=== PATIENT | male | born 1970 | race Caucasian/White ===

== ENCOUNTER 2019-03-31 07:44 | Day surgery (SDC) | payer OTHER ==
[2019-03-29 15:56] VITALS: BMI 31.9
[2019-03-31] MEDS ORDERED: CITRIC ACID/SODIUM CITRATE 30 ML UNIT-DOSE CUP PO ONE (08:30)
[2019-03-31] MEDS ORDERED: MIDAZOLAM HCL 2 MG/2 ML SINGLE DOSE VIAL ONE (10:29)
[2019-03-31] MEDS ORDERED: PROPOFOL 20 ML ONE (10:29)
[2019-03-31] MEDS ORDERED: SUCCINYLCHOLINE CHLORIDE 200 MG/10 ML SYRINGE ONE (10:30)
[2019-03-31] MEDS ORDERED: ROCURONIUM BROMIDE 50 MG/5 ML SYRINGE ONE (10:30)
[2019-03-31] MEDS ORDERED: LIDOCAINE HCL 1% PRESERVATIVE FREE - 30ML VIAL ONE (10:37)
[2019-03-31] MEDS ORDERED: DEXAMETHASONE SOD PHOSPHATE 4 MG/1 ML VIAL ONE (10:53)
[2019-03-31] MEDS ORDERED: KETOROLAC TROMETHAMINE 30 MG/1 ML VIAL ONE (10:53)
[2019-03-31] MEDS ORDERED: ceFAZolin SODIUM 1 GM VIAL ONE (10:53)
[2019-03-31] MEDS ORDERED: ONDANSETRON 4 MG/2 ML VIAL ONE ×2 (10:53→12:06)
[2019-03-31] MEDS ORDERED: LIDOCAINE HCL 2% JELLY (5 ML/TUBE) ONE (10:53)
[2019-03-31] MEDS ORDERED: LIDOCAINE HCL/PF 2% SDV 5ML VIAL ONE (10:53)
[2019-03-31] MEDS ORDERED: DESFLURANE GAS 240 ML BOTTLE IH ONE (11:25)
[2019-03-31] MEDS ORDERED: ONDANSETRON 4 MG/2 ML VIAL IVPUSH PRN (12:15)
[2019-03-31] MEDS ORDERED: oxyCODONE HCL 5 MG TABLET PO PRN ×2 (12:15)
[2019-03-31] MEDS ORDERED: PROMETHAZINE HCL 25 MG/1 ML VIAL IVPUSH PRN (12:15)
[2019-03-31] MEDS ORDERED: oxyCODONE HCL 5 MG TABLET ONE (13:03)
--- NOTE | 2019-03-31 13:08 | OP ---
DATE OF OPERATION: 03/31/2019 PREOPERATIVE DIAGNOSIS: Carpal tunnel syndrome, left wrist. POSTOPERATIVE DIAGNOSIS: Carpal tunnel syndrome, left wrist with thickened epineurium. PROCEDURE PERFORMED: Left median nerve decompression with release and partial resection transverse carpal ligament and epineurolysis with median nerve exploration and release of antebrachial fascia. SURGEON: Eduardo Marie MD BUFFET SERVER: None. ANESTHESIA: Jamal Lara MD, general anesthesia. DESCRIPTION OF PROCEDURE: The procedure consisted of the patient being brought into the operating room and gently transferred from the stretcher to the OR table with all bony prominences well padded. The left arm was prepared and draped in a sterile fashion. The patient was given intravenous antibiotics with copious irrigation throughout the procedure to minimize the risk of infection. Complete risk, benefit, alternative discussion was conducted with the patient, which was inclusive of, but not limited to, infection, bleeding, , paralysis, increased pain, need for repeat surgery. Patient asked questions, understood the procedure, and desired to proceed with surgical treatment. Following sterile preparation and draping of the left arm, appropriate time-out was conducted, which was inclusive of, but not limited to, type of surgery, site of surgery, surgeon, and anesthesiologist. Following sterile preparation and draping of the left arm, the arm was exsanguinated using rubber Esmarch bandage, and the tourniquet was inflated to 250 mmHg and was examined. A curvilinear incision in line with the palmar crease proximal to the wrist crease was made approximately 2 inches in length. Soft tissues were dissected in line with the skin incision. Great care was taken to protect neurovascular structures. Bipolar cautery was used to control bleeding. The transverse carpal ligament was identified as well as antebrachial fascia. The antebrachial fascia was then gently and bluntly dissected to allow access to the space deep to that. Antebrachial fascia was then released. There was no decompression of that. The transverse carpal ligament was then visualized. A mosquito hemostat was placed deep to the tissue of the transverse carpal ligament to protect the median nerve. Sharp dissection using a 15 blade scalpel was used to release the transverse carpal ligament. The median nerve was visualized. There was noted to be wasting of the median nerve with compression at the transverse carpal ligament. Initially, venous flow was not present, and as the release was conducted, blood flow was seen to return to the median nerve. There was noted to be thickening of the epineurium, and epineurolysis was then conducted. This was done proximally releasing the antebrachial fascia with continued release of the palmar cutaneous fat progression. Palmar fascia was also done to release the nerve distal to the transverse carpal ligament. Recurrent median nerve, recurrent motor branch of the median nerve was identified and released. A moistened small finger was then used to palpate deep to the transverse carpal ligament and the carpal tunnel to identify no masses were present. Following this, there was noted to be significant thickening of the transverse carpal ligament, and a second of that approximately 2 mm in length was resected and taken from that area to avoid recurrent compression from that structure. The wounds were then copiously irrigated. Again, hemostasis maintain using bipolar cautery, and interrupted 4-0 mattress sutures were used to bring the tissues in an anatomic fashion together. A dressing of Xeroform, 4 x 4's, Combine, fluffs, and Kerlix was applied, which consisted of a bulky dressing, and soft elevation was then applied. Tourniquet had been deflated after approximately 24 minutes of tourniquet time. Callie [id number]
[2019-03-31 13:16] VITALS: TEMP 97.7
[2019-03-31 13:41] VITALS: BP 125/75; PULSE 84
== END 2019-03-31 13:40 | disposition home or self-care (01) ==
LOC: FASU 07:44
PROVIDERS: ATTEND Orthopaedic Surgery
PROC: 01N50ZZ Release Median Nerve, Open Approach (ICD-10-PCS; principal; 2019-03-31 11:10)
DX: G56.02 Carpal tunnel syndrome, left upper limb (principal); M25.832 Other specified joint disorders, left wrist
CPT/HCPCS: 94760

== ENCOUNTER 2020-07-29 10:16 | Day surgery (SDC) | payer OTHER ==
[2020-07-22 17:59] VITALS: BMI 32.6
[2020-07-29 10:38] VITALS: TEMP 98.4
[2020-07-29] MEDS ORDERED: MIDAZOLAM HCL 2 MG/2 ML SINGLE DOSE VIAL ONE (12:01)
[2020-07-29] MEDS ORDERED: PROPOFOL 20 ML ONE (12:01)
[2020-07-29] MEDS ORDERED: BUPIVACAINE HCL/PF 0.5% (5MG/ML) 10 ML VIAL IJ ONE (13:48)
[2020-07-29] MEDS ORDERED: oxyCODONE HCL 5 MG TABLET PO PRN ×2 (14:27)
[2020-07-29] MEDS ORDERED: ONDANSETRON 4 MG/2 ML VIAL IVPUSH PRN (14:27)
[2020-07-29] MEDS ORDERED: LACTATED RINGERS SOLUTION 1,000 ML IV SCH (14:30)
[2020-07-29 15:34] VITALS: BP 112/71; PULSE 81
== END 2020-07-29 15:41 | disposition home or self-care (01) ==
LOC: FASU 10:16
PROVIDERS: ATTEND Orthopaedic Surgery
PROC: 0RBN4ZZ Excision of Right Wrist Joint, Percutaneous Endoscopic Approach (ICD-10-PCS; principal; 2020-07-29 13:47)
DX: M24.131 Other articular cartilage disorders, right wrist (principal); M25.632 Stiffness of left wrist, not elsewhere classified; M67.231 Synovial hypertrophy, not elsewhere classified, right forearm; M94.231 Chondromalacia, right wrist
CPT/HCPCS: 82962; 94760